=== PATIENT | male | born 1970 | race Caucasian/White ===

== ENCOUNTER 2018-11-25 12:08 | Emergency (ER) | payer SELFPAY ==
[2018-11-25 12:55] LABS: Absolute Lymphocytes (CBC) 1.2 K/uL (0.7-4.9); Absolute Monocytes 0.4 K/uL (0.1-1.3); Absolute Neutrophil 7.4 K/uL (1.8-8.0); Basophils % 0.4 % (0-1.3); Eosinophils % 0.9 % (0-4.4); Hematocrit 46.5 % (39.6-49.0); MPV 8.2 fL (7.6-11.3); RBC Red Blood Cell Count 5.27 M/uL (4.33-5.43)
--- NOTE | 2018-11-25 13:00 | RAD REPORT ---
EXAM DESCRIPTION: CT - Head Brain Wo Cont - 11/25/2018 12:50 pm CLINICAL HISTORY: Headache COMPARISON: None. TECHNIQUE: Computed axial tomography of the head was obtained. IV contrast was not requested. All CT scans are performed using dose optimization technique as appropriate and may include automated exposure control or mA/KV adjustment according to patient size. FINDINGS: An intracranial bleed is not seen . The ventricles are normal in caliber. No extra-axial fluid collection is noted. Mild to moderate ethmoid sinusitis. IMPRESSION: No acute intracranial abnormality is seen. If patient's symptoms persist MRI of the bra in would be recommended. Mild to moderate ethmoid sinusitis
[2018-11-25] MEDS ORDERED: LISINOPRIL 5 MG TAB ONE ×2 (13:02→13:42)
[2018-11-25 13:21] LABS: Albumin 4.2 g/dL (3.4-5.0); Bilirubin Direct 0.3 mg/dL (0-0.2); Bilirubin Total 1.5 mg/dL (0.2-1.0); Potassium 3.7 mmol/L (3.5-5.1); Protein, Total 7.3 g/dL (6.4-8.2)
[2018-11-25] MEDS ORDERED: ONDANSETRON 4 MG/2 ML VIAL ONE (13:42)
--- NOTE | 2018-11-25 14:00 | EKG ---
Test Date: 2018-11-25 Test Time: 12:58:55 Ramp Manager: DEVEN MEASUREMENT RESULTS: Intervals: Rate: 49 MA: 212 QRSD: 96 QT: 470 QTc: 424 [place]: P: 72 MA: 212 QRS: 68 T: 62 INTERPRETIVE STATEMENTS: Sinus bradycardia with 1st degree AV block Minimal voltage criteria for LVH, may be normal variant Borderline ECG No previous ECG available for comparison Electronically Signed On 11-25-18 14:00:13 CDT by Mikey Guzman
[2018-11-25] MEDS ORDERED: cloNIDine HCl 0.1 MG TAB ONE (14:59)
[2018-11-25] MEDS ORDERED: AMOX/K CLAV 875 MG TAB ONE (15:00)
[2018-11-25] MEDS ORDERED: KETOROLAC 30 MG/ML INJ ONE (15:07)
--- NOTE | 2018-11-25 15:59 | EDPHYS ---
Physician Documentation [facility] Name: Eduin Clayton Age: 48 yrs Sex: Male : 1970 Arrival Date: 11/25/2018 Time: 12:10 Bed 7 Private MD: ED Physician Jason Yousif HPI: 11/25 12:52 This 48 yrs old Male presents to ER via Ambulatory with complaints of kb Abdominal Pain, High Blood Pressure, Headache. 12:52 The patient has elevated blood pressure and discovered this at home. Onset: The kb symptoms/episode began/occurred yesterday. Modifying factors: The symptoms are aggravated by discontinuation of meds. Associated signs and symptoms: Pertinent positives: headache, Pertinent negatives: chest pain, dizziness, dyspnea, lightheadedness, nausea, visual changes, vomiting, weakness. Severity of symptoms: At its worst the blood pressure was 159 mm Hg. The patient has experienced similar episodes in the past. The patient has not recently seen a physician. Pt reports he is from [place] and ran out of his BP medication. STates he doesn't know the name of the med, but it is 5mg. States he developed a headache last night and wanted to get bp meds so he didn't have this headache on the flight home on Wednesday. Reports generalized abd pain started this morning as well.. Historical: - Allergies: 12:13 No Known Allergies; aa5 - PMHx: 12:13 Hypertension; aa5 - Immunization history:: Adult Immunizations up to date. - Social history:: Smoking status: Patient/guardian denies using tobacco. - Ebola Screening: : No symptoms or risks identified at this time. ROS: 12:51 Constitutional: Negative for fever, chills, and weight loss, Neck: Negative for injury, kb pain, and swelling, Cardiovascular: Negative for chest pain, palpitations, and edema, Respiratory: Negative for shortness of breath, cough, wheezing, and pleuritic chest pain, Back: Negative for injury and pain, : Negative for injury, bleeding, discharge, and swelling, MS/Extremity: Negative for injury and deformity, Skin: Negative for injury, rash, and discoloration. 12:51 Abdomen/GI: Positive for abdominal pain, nausea, Negative for vomiting, diarrhea, constipation, abdominal cramps, abdominal distension, anorexia. 12:51 Neuro: Positive for headache. Exam: 12:51 Constitutional: This is a well developed, well nourished patient who is awake, alert, kb and in no acute distress. Head/Face: Normocephalic, atraumatic. ENT: Nares patent. No nasal discharge, no septal abnormalities noted. Tympanic membranes are normal and external auditory canals are clear. Oropharynx with no redness, swelling, or masses, exudates, or evidence of obstruction, uvula midline. Mucous membranes moist. Neck: Trachea midline, no thyromegaly or masses palpated, and no cervical lymphadenopathy. Supple, full range of motion without nuchal rigidity, or vertebral point tenderness. No Meningismus. Chest/axilla: Normal chest wall appearance and motion. Nontender with no deformity. No lesions are appreciated. Cardiovascular: Regular rate and rhythm with a normal S1 and S2. No gallops, murmurs, or rubs. Normal PMI, no JVD. No pulse deficits. Respiratory: Lungs have equal breath sounds bilaterally, clear to auscultation and percussion. No rales, rhonchi or wheezes noted. No increased work of breathing, no retractions or nasal flaring. Abdomen/GI: Soft, non-tender, with normal bowel sounds. No distension or tympany. No guarding or rebound. No evidence of tenderness throughout. Back: No spinal tenderness. No costovertebral tenderness. Full range of motion. Skin: Warm, dry with normal turgor. Normal color with no rashes, no lesions, and no evidence of cellulitis. MS/ Extremity: Pulses equal, no cyanosis. Neurovascular intact. Full, normal range of motion. Neuro: Awake and alert, GCS 15, oriented to person, place, time, and situation. Cranial nerves II-XII grossly intact. Motor strength 5/5 in all extremities. Sensory grossly intact. Cerebellar exam normal. Normal gait. Vital Signs: 12:13 BP 159 / 110; Pulse 50; Resp 16 S; Temp 98.3(TE); Pulse Ox 100% on R/A; aa5 12:15 Weight 89.36 kg (M); aa5 12:45 BP 182 / 114; Pulse 54; Resp 16; Pulse Ox 98% on R/A; Pain 5/10; ch 13:34 BP 184 / 112; Pulse 61; Resp 17; Pulse Ox 100% on R/A; Pain 5/10; ch 14:37 BP 179 / 108; Pulse 55; Resp 19; Temp 98.1(O); Pulse Ox 100% on R/A; Pain 5/10; dh3 15:37 BP 167 / 99; Pulse 50; Resp 12; Pulse Ox 100% on R/A; Pain 6/10; ch 16:28 BP 163 / 101; Pulse 52; Resp 18; Temp 97.8; Pulse Ox 100% on R/A; ph MDM: 12:17 Patient medically screened. kb 12:29 Data reviewed: vital signs, nurses notes. Data interpreted: Pulse oximetry: on room air kb is 100 %. Interpretation: normal. 13:53 ED course: Pt sleeping comfortably on stretcher. No distress noted. kb 15:58 Counseling: I had a detailed discussion with the patient and/or guardian regarding: the kb historical points, exam findings, and any diagnostic results supporting the discharge/admit diagnosis, lab results, radiology results, the need for outpatient follow up, a family practitioner, to return to the emergency department if symptoms worsen or persist or if there are any questions or concerns that arise at home. 15:59 ED course: Pt is going back to [facility] on Wednesday and will follow up with PCP for BP kb managment. 11/25 12:26 Order name: Basic Metabolic Panel; Complete Time: 13:25 kb 11/25 12:26 Order name: CBC with Diff; Complete Time: 12:59 kb 11/25 12:26 Order name: CT Head Brain wo Cont; Complete Time: 13:06 kb 11/25 12:26 Order name: Hepatic Function; Complete Time: 13:25 kb 11/25 12:26 Order name: Lipase; Complete Time: 13:25 kb 11/25 12:26 Order name: EKG; Complete Time: 12:27 kb 11/25 12:26 Order name: EKG - Nurse/Tech; Complete Time: 13:39 kb 11/25 12:26 Order name: IV Saline Lock; Complete Time: 12:47 kb 11/25 12:26 Order name: Labs collected and sent; Complete Time: 12:47 kb 11/25 14:22 Order name: Vital Signs; Complete Time: 14:38 kb Administered Medications: 12:49 Drug: Lisinopril 5 mg Route: PO; ch 12:50 Follow up: Response: No adverse reaction ch 13:00 Follow up: Response: Temperature is decreased; Other; pt vomits in room, pill in vomit. ch 13:23 Drug: Zofran 4 mg Route: IVP; Site: right antecubital; ch 13:37 Follow up: Response: No adverse reaction ch 13:37 Drug: Lisinopril 5 mg Route: PO; ch 14:55 Follow up: Response: No adverse reaction ch 14:45 Drug: Augmentin 875 mg Route: PO; ch 14:55 Follow up: Response: No adverse reaction ch 14:50 Drug: cloNIDine 0.1 mg Route: PO; ch 14:55 Drug: TORadol 30 mg Route: IVP; Site: right antecubital; Disposition: 18:08 Co-signature as Attending Physician, Jason Yousif MD I agree with the assessment and kdr plan of care. Disposition: 11/25/18 15:58 Discharged to Home. Impression: Essential (primary) hypertension, Headache, Acute sinusitis. - Condition is Stable. - Discharge Instructions: Sinusitis, Adult, [id number], Hypertension, [id number]. - Prescriptions for Augmentin 875- 125 mg Oral Tablet - take 1 tablet by ORAL route every 12 hours for 7 days; 14 tablet. Lisinopril 5 mg Oral Tablet - take 1 tablet by ORAL route once daily; 20 tablet. - Medication Reconciliation Form, Thank You Letter, Antibiotic Education, Prescription Opioid Use, Work release form form. - Follow up: Emergency Department; When: As needed; Reason: Worsening of condition. Follow up: Private Physician; When: 2 - 3 days; Reason: Recheck today's complaints, Continuance of care, Re-evaluation by your physician. Signatures: Dispatcher [employer] EDNM Nori Taylor, JAYC KATHY-Patricia Mathis RN RN ch Rittger, Kevin, MD MD [facility] Steph Damon RN RN aa Kelsea Luque RN RN ph Corrections: (The following items were deleted from the chart) 16:29 15:58 11/25/2018 15:58 Discharged to Home. Impression: Essential (primary) ph hypertension; Headache; Acute sinusitis. Condition is Stable. Forms are Medication Reconciliation Form, Thank You Letter, Antibiotic Education, Prescription Opioid Use. Follow up: Emergency Department; When: As needed; Reason: Worsening of condition. Follow up: Private Physician; When: 2 - 3 days; Reason: Recheck today's complaints, Continuance of care, Re-evaluation by your physician. kb
--- NOTE | 2018-11-25 15:59 | ER ---
Nurse's Notes [facility] Name: Eduin Clayton Age: 48 yrs Sex: Male : 1970 Arrival Date: 11/25/2018 Time: 12:10 Bed 7 Private MD: Diagnosis: Essential (primary) hypertension;Headache;Acute sinusitis Presentation: 11/25 12:11 Presenting complaint: Patient states: "I have a headache and I haven't taken my blood aa5 pressure medicine for 4 weeks now because I am from [place] and my stay in the [facility] has become extended". Pt also reports abd pain. Transition of care: patient was not received from another setting of care. Onset of symptoms was November 24, 2018. Risk Assessment: Do you want to hurt yourself or someone else? Patient reports no desire to harm self or others. Initial Sepsis Screen: Does the patient meet any 2 criteria? No. Patient's initial sepsis screen is negative. Does the patient have a suspected source of infection? No. Patient's initial sepsis screen is negative. Care prior to arrival: None. 12:11 Method Of Arrival: Ambulatory aa5 12:11 Acuity: ADRIANNA 3 aa5 Historical: - Allergies: 12:13 No Known Allergies; aa5 - PMHx: 12:13 Hypertension; aa5 - Immunization history:: Adult Immunizations up to date. - Social history:: Smoking status: Patient/guardian denies using tobacco. - Ebola Screening: : No symptoms or risks identified at this time. Screenin:34 Abuse screen: Denies threats or abuse. Denies injuries from another. Nutritional ch screening: No deficits noted. Tuberculosis screening: No symptoms or risk factors identified. Fall Risk None identified. Assessment: 12:20 General: Appears in no apparent distress. uncomfortable, Behavior is cooperative. Pain: Complains of pain in head and abdomen Pain currently is 7 out of 10 on a pain scale. Pain began suddenly. Neuro: Level of Consciousness is awake, alert, obeys commands, Oriented to person, place, time, situation, Countersinker Balance Screw Hole are equal bilaterally Moves all extremities. Full function Gait is steady, Speech is normal, Facial symmetry appears normal, Facial symmetry: tongue is midline, Pupils are PERRLA. Cardiovascular: Heart tones S1 S2 present. Respiratory: Airway is patent Respiratory effort is even, unlabored, Breath sounds are clear bilaterally. GI: Bowel sounds present X 4 quads. Abd is soft and non tender X 4 quads. Reports nausea, vomiting. Derm: Skin is pink, warm \\T\\ dry. 13:10 Reassessment: Patient appears in no apparent distress at this time. Patient and/or ch family updated on plan of care and expected duration. Pain level reassessed. pt vomits in room, vomits bp medication. nori notified, pt medicated. 13:30 Reassessment: Patient appears in no apparent distress at this time. Patient and/or ch family updated on plan of care and expected duration. Pain level reassessed. pt states he still feels nauseous. 14:41 Reassessment: Patient appears in no apparent distress at this time. Patient and/or ch family updated on plan of care and expected duration. Pain level reassessed. Patient is alert, oriented x 3, equal unlabored respirations, skin warm/dry/pink. pt states he is less nauseous, but his head hurts. Patient states symptoms have improved. 14:53 Reassessment: Patient appears in no apparent distress at this time. Patient and/or ch family updated on plan of care and expected duration. Pain level reassessed. Patient is alert, oriented x 3, equal unlabored respirations, skin warm/dry/pink. pt states his head hurts a lot. Chloe notified, pt medicated per orders. 15:37 Reassessment: Patient appears in no apparent distress at this time. Patient and/or ch family updated on plan of care and expected duration. Pain level reassessed. Patient is alert, oriented x 3, equal unlabored respirations, skin warm/dry/pink. Patient states feeling better. Patient states symptoms have improved. 16:25 Reassessment: Patient appears in no apparent distress at this time. Patient and/or ph family updated on plan of care and expected duration. Pain level reassessed. Patient is alert, oriented x 3, equal unlabored respirations, skin warm/dry/pink. Pt d/c home Patient states symptoms have improved. Vital Signs: 12:13 BP 159 / 110; Pulse 50; Resp 16 S; Temp 98.3(TE); Pulse Ox 100% on R/A; aa5 12:15 Weight 89.36 kg (M); aa5 12:45 BP 182 / 114; Pulse 54; Resp 16; Pulse Ox 98% on R/A; Pain 5/10; ch 13:34 BP 184 / 112; Pulse 61; Resp 17; Pulse Ox 100% on R/A; Pain 5/10; ch 14:37 BP 179 / 108; Pulse 55; Resp 19; Temp 98.1(O); Pulse Ox 100% on R/A; Pain 5/10; dh3 15:37 BP 167 / 99; Pulse 50; Resp 12; Pulse Ox 100% on R/A; Pain 6/10; ch 16:28 BP 163 / 101; Pulse 52; Resp 18; Temp 97.8; Pulse Ox 100% on R/A; ph ED Course: 12:10 Patient arrived in ED. aa5 12:11 Arm band placed on. aa5 12:12 Triage completed. aa5 12:17 Nori Taylor [facility]-C [facility]. kb 12:17 Jason Yousif MD is Attending Physician. kb 12:22 Patricia Dodd, PRUDENCIO is Primary Nurse. ch 12:46 Initial lab(s) drawn, by vt, sent to lab. Inserted saline lock: 20 gauge in right dh3 antecubital area, using aseptic technique. Blood collected. 12:52 CT Head Brain wo Cont In Process Unspecified. EDMS 13:04 EKG done, by configuration technician. reviewed by Nori DE LA CRUZ. sm3 13:09 EKG done, by configuration technician. reviewed by Jason Yousif MD. dt2 13:34 No apparent distress. Resting quietly. ch 13:34 Patient has correct armband on for positive identification. Bed in low position. Call light in reach. Side rails up X 1. Pulse ox on. NIBP on. Warm blanket given. Pillow given. PO fluids given. Cool cloth applied. Verbal reassurance given. 13:34 No provider procedures requiring assistance completed. ch 16:28 IV discontinued, intact, bleeding controlled, No redness/swelling at site. Pressure ph dressing applied. Administered Medications: 12:49 Drug: Lisinopril 5 mg Route: PO; ch 12:50 Follow up: Response: No adverse reaction ch 13:00 Follow up: Response: Temperature is decreased; Other; pt vomits in room, pill in vomit. ch 13:23 Drug: Zofran 4 mg Route: IVP; Site: right antecubital; 13:37 Follow up: Response: No adverse reaction ch 13:37 Drug: Lisinopril 5 mg Route: PO; ch 14:55 Follow up: Response: No adverse reaction ch 14:45 Drug: Augmentin 875 mg Route: PO; ch 14:55 Follow up: Response: No adverse reaction ch 14:50 Drug: cloNIDine 0.1 mg Route: PO; ch 14:55 Drug: TORadol 30 mg Route: IVP; Site: right antecubital; Outcome: 15:58 Discharge ordered by . kb 16:29 Patient left the ED. ph 16:29 Discharged to home ambulatory. ph 16:29 Condition: improved 16:29 Discharge instructions given to patient, Instructed on discharge instructions, follow up and referral plans. medication usage, Demonstrated understanding of instructions, follow-up care, medications, Prescriptions given X 2. Signatures: Dispatcher [employer] EDMS Nori Taylor, JAYC KATHY-Patricia Mathis, RN RN Steph Damon, RN RN aa5 Kelsea Luque RN RN Yanet Shay 3 [place] dt2 Renetta Nance 3 Corrections: (The following items were deleted from the chart) 14:54 14:41 Reassessment: Patient appears in no apparent distress at this time. Patient ch and/or family updated on plan of care and expected duration. Pain level reassessed. Patient is alert, oriented x 3, equal unlabored respirations, skin warm/dry/pink. Patient states feeling better. Patient states symptoms have improved. ch
== END 2018-11-25 16:29 | disposition home or self-care (01) ==
LOC: ER 12:08
DX: I10 Essential (primary) hypertension (principal); J01.90 Acute sinusitis, unspecified
CPT/HCPCS: 36415; 70450; 80048; 80076; 83690; 85025; 93005; 96374; 96375; 99284; J2405